=== PATIENT | male | born 1950 | race Caucasian/White ===

== ENCOUNTER 2024-07-26 09:26 | Inpatient (IN) ==
[2024-07-26] MEDS ORDERED: 0.9 % SODIUM CHLORIDE 1,000 ML IV ONE (09:50)
[2024-07-26] MEDS: 0.9 % SODIUM CHLORIDE 500 ML IV ONE ×2 (09:53→12:10)
[2024-07-26] MEDS: 0.9 % SODIUM CHLORIDE 250 ML IV SCH ×3 (09:56→12:22)
[2024-07-26 10:09] LABS: Basophils # (Auto) 0.07 K/mcL (0.00-0.30); Basophils % (Auto) 0.2 % (0.0-2.0); Eosinophils # (Auto) 0 K/mcL (0.00-0.70); Eosinophils % (Auto) 0 % (0.0-7.0); Hematocrit 24.7 % (40.1-51.0); Hemoglobin 7.5 g/dL (13.7-17.5); Lymphocytes # (Auto) 1.65 K/mcL (1.50-4.80); Lymphocytes % (Auto) 4.8 % (15.5-49.0); Mean Cell Volume 94.6 fL (80.0-100.0); Mean Corpuscular HGB Conc 30.4 g/dL (31.0-36.0); Mean Platelet Volume 10.3 fL (8.8-12.5); Monocytes # (Auto) 1.38 K/mcL (0.10-0.90); Neutrophils % (Auto) 90.4 % (38.0-78.0); Platelet Count 299 K/mcL (140-440); RBC 2.61 M/mcL (4.63-6.08); Red Cell Distribution Width 16.5 % (11.5-14.5); WBC 34.6 K/mcL (4.5-11.0)
[2024-07-26 10:24] LABS: INR 1.2 (0.9-1.1); Prothrombin Time 15.9 sec (11.9-14.5)
[2024-07-26 10:29] LABS: ABG Methemoglobin 0.2 % (0.4-1.5); Total Hemoglobin 8.7 gm/Dl (13.5-16.5); VBG Base Excess -11 (-2-3); VBG HCO3 15.7 mmol/L (24.0-28.0); VBG Oxygen Saturation 80.1 % (40.0-70.0); VBG PCO2 40.7 mmHg (41.0-51.0); VBG PH 7.21 U (7.32-7.42); VBG PO2 66.1 mmHg (25.0-40.0)
[2024-07-26] MEDS: METOPROLOL TARTRATE 5 MG/5 ML VIAL IV ONE (11:06)
[2024-07-26 11:11] LABS: ALT/SGPT 13 U/L (<40); AST/SGOT 23 U/L (<40); Albumin 3.4 gm/dL (3.2-5.2); Albumin/Globulin Ratio 1.4 (1.0-2.3); Alkaline Phosphatase 82 U/L (39-117); Bilirubin,Total 0.6 mg/dL (0.1-1.0); Blood Urea Nitrogen 49 mg/dL (8-23); Calcium 9.4 mg/dL (8.6-10.4); Carbon Dioxide 17 mmol/L (22-30); Chloride 91 mmol/L (96-108); Globulin 2.4 gm/dL (2.2-3.7); Glomerular Filtration Rate 26; Glucose 145 mg/dL (70-105); Potassium 4.8 mmol/L (3.3-5.1); Sodium 130 mmol/L (133-145)
[2024-07-26] MEDS: LIDOCAINE 2% URO-JET 10 ML JEL.PF.APP UR ONE (11:35)
[2024-07-26] MEDS: [UNRECOGNIZED DRUG - OTHER] IV ONE (12:09)
[2024-07-26] MEDS: NOREPINEPHRINE 250 ML IV SCH ×2 (12:09→19:20)
[2024-07-26] MEDS: EMPTYBAG IV ONE ×2 (12:09→12:23)
[2024-07-26] MEDS: NOREPINEPHRINE BITARTRATE 16 MG in 0.9 % SODIUM CHLORIDE 234 ML IV SCH (12:09)
[2024-07-26] MEDS: [UNRECOGNIZED DRUG - OTHER] IV ONE (12:23)
[2024-07-26] MEDS: CEFEPIME 1 GM VIAL IV ONE (12:34)
[2024-07-26] MEDS: VANCOMYCIN 1,500 MG in 0.9 % SODIUM CHLORIDE 500 ML IV ONE (12:36)
[2024-07-26] MEDS: VANCOMYCIN 1,250 MG in 0.9 % SODIUM CHLORIDE 500 ML IV ONE (12:43)
[2024-07-26 13:04] LABS: Appearance,Urine CLOUDY (Clear); Bilirubin,Urine Negative (Negative); Color,Urine RED; Glucose,Urine (UA) 50 mg/dL (Negative); Ketones,Urine Negative (Negative); Leukocyte Esterase,Urine Negative /uL (Negative); Nitrate,Urine Negative (Negative); Protein,Urine 100 mg/dL (Negative); Specific Gravity,Urine 1.025 (1.000-1.035); Urine RBC > 182 /hpf (0-1); Urine Squamous Epithelial Cell 0 /hpf (0-4); Urine WBC > 182 /hpf (0-4); Urobilinogen,Urine Negative
[2024-07-26] MEDS ORDERED: VANCOMYCIN PER PHARMACY IV SCH (14:42)
[2024-07-26] MEDS ORDERED: DEXTROSE 50% 50 ML VIAL IV PRN (16:02)
[2024-07-26] MEDS ORDERED: DEXTROSE 31 GM ORAL.SUSP PO PRN (16:02)
[2024-07-26] MEDS ORDERED: BISACODYL 10 MG SUPP.RECT PR PRN (16:02)
[2024-07-26] MEDS ORDERED: ONDANSETRON 4 MG/2 ML VIAL IV PRN (16:02)
[2024-07-26] MEDS: CEFEPIME 2 GM VIAL IV SCH ×2 (17:07→20:58)
[2024-07-26] MEDS: INSULIN LISPRO 1 UNIT/0.01 ML UNIT SQ SCH (17:30)
[2024-07-26] MEDS: LACTATED RINGERS 1,000 ML IV SCH (17:32)
[2024-07-26 18:04] LABS: Hematocrit 27.2 % (40.1-51.0); Hemoglobin 8.7 g/dL (13.7-17.5)
[2024-07-26 19:23] LABS: Estimated Average Glucose(eAG) 97 mg/dL
[2024-07-26] MEDS: 0.9 % SODIUM CHLORIDE 10 ML SYRINGE IV SCH (20:58)
[2024-07-27 06:04] LABS: Basophils # (Auto) 0.01 K/mcL (0.00-0.30); Basophils % (Auto) 0 % (0.0-2.0); Eosinophils # (Auto) 0.01 K/mcL (0.00-0.70); Eosinophils % (Auto) 0 % (0.0-7.0); Hematocrit 22.8 % (40.1-51.0); Hemoglobin 7.4 g/dL (13.7-17.5); Lymphocytes # (Auto) 0.79 K/mcL (1.50-4.80); Lymphocytes % (Auto) 3.6 % (15.5-49.0); Mean Cell Volume 91.2 fL (80.0-100.0); Mean Corpuscular HGB Conc 32.5 g/dL (31.0-36.0); Mean Platelet Volume 10.4 fL (8.8-12.5); Monocytes # (Auto) 1.32 K/mcL (0.10-0.90); Monocytes % (Auto) 6.1 % (1.0-12.0); Neutrophils % (Auto) 89.3 % (38.0-78.0); Platelet Count 149 K/mcL (140-440); Red Cell Distribution Width 15.8 % (11.5-14.5); WBC 21.7 K/mcL (4.5-11.0)
[2024-07-27 06:14] LABS: INR 1.3 (0.9-1.1); Prothrombin Time 16.6 sec (11.9-14.5)
[2024-07-27 06:25] LABS: Vancomycin,Random 7.5 ug/mL
[2024-07-27 06:28] LABS: Blood Urea Nitrogen 39 mg/dL (8-23); Calcium 8.7 mg/dL (8.6-10.4); Carbon Dioxide 20 mmol/L (22-30); Chloride 102 mmol/L (96-108); Glomerular Filtration Rate 59; Glucose 93 mg/dL (70-105); Potassium 4.3 mmol/L (3.3-5.1); Sodium 134 mmol/L (133-145)
[2024-07-27] MEDS: 0.9 % SODIUM CHLORIDE 250 ML IV SCH (08:20)
[2024-07-27] MEDS ORDERED: CEFEPIME 1 GM VIAL IV SCH (09:00)
[2024-07-27] MEDS: VANCOMYCIN 1,750 MG in 0.9 % SODIUM CHLORIDE 500 ML IV ONE (09:49)
[2024-07-27] MEDS ORDERED: PROPOFOL 200 MG/20 ML VIAL IV ONE (10:30)
[2024-07-27] MEDS ORDERED: KETAMINE 50 MG/ML ML ONE (10:31)
[2024-07-27] MEDS ORDERED: DEXAMETHASONE 10 MG/ML VIAL ONE (10:32)
[2024-07-27] MEDS ORDERED: LIDOCAINE 2% PF 5 ML VIAL ONE (10:32)
[2024-07-27] MEDS ORDERED: ONDANSETRON 4 MG/2 ML VIAL ONE (10:32)
[2024-07-27] MEDS ORDERED: MEPERIDINE 25 MG/ML VIAL IV PRN (11:20)
[2024-07-27] MEDS ORDERED: IPRATROPIUM/ALBUTEROL 3 ML AMPUL.NEB NEB PRN (11:20)
[2024-07-27] MEDS ORDERED: fentaNYL 100 MCG/2 ML VIAL IV PRN (11:20)
[2024-07-27] MEDS ORDERED: NALOXONE HCL 0.4 MG/ML VIAL IV PRN (11:20)
[2024-07-27] MEDS ORDERED: ONDANSETRON 4 MG/2 ML VIAL IV PRN (11:20)
[2024-07-27] MEDS ORDERED: diphenhydrAMINE 50 MG/ML VIAL IV PRN (11:20)
[2024-07-27] MEDS ORDERED: LACTATED RINGERS 250 ML IV PRN (11:20)
[2024-07-27] MEDS: ACETAMINOPHEN 1,000 MG/100 ML BAG IV ONE (12:11)
[2024-07-27 12:59] LABS: Hematocrit 30.4 % (40.1-51.0); Hemoglobin 9.8 g/dL (13.7-17.5)
[2024-07-27] MEDS: LACTATED RINGERS 1,000 ML IV SCH (13:49)
[2024-07-27] MEDS: LIDOCAINE 2% URO-JET 10 ML JEL.PF.APP UR ONE (13:50)
[2024-07-27] MEDS ORDERED: BISACODYL 10 MG SUPP.RECT PR PRN (16:53)
[2024-07-27] MEDS: HYDROcodone/APAP 5/325MG TABLET PO PRN (20:57)
[2024-07-27] MEDS: CALCIUM CARBONATE 500 MG TAB.CHEW CHEWED SCH (20:59)
[2024-07-27] MEDS: FLUTICASONE/SALMETEROL 250/50 INHALER #14 INH SCH (20:59)
[2024-07-28 05:52] LABS: Basophils # (Auto) 0.01 K/mcL (0.00-0.30); Basophils % (Auto) 0.1 % (0.0-2.0); Eosinophils # (Auto) 0.01 K/mcL (0.00-0.70); Eosinophils % (Auto) 0.1 % (0.0-7.0); Hematocrit 27.5 % (40.1-51.0); Hemoglobin 8.8 g/dL (13.7-17.5); Lymphocytes # (Auto) 0.58 K/mcL (1.50-4.80); Lymphocytes % (Auto) 3.9 % (15.5-49.0); Mean Platelet Volume 10.7 fL (8.8-12.5); Monocytes # (Auto) 0.82 K/mcL (0.10-0.90); Monocytes % (Auto) 5.5 % (1.0-12.0); Neutrophils % (Auto) 89.5 % (38.0-78.0); Platelet Count 131 K/mcL (140-440); RBC 2.99 M/mcL (4.63-6.08); Red Cell Distribution Width 16.6 % (11.5-14.5); WBC 14.8 K/mcL (4.5-11.0)
[2024-07-28 06:11] LABS: Blood Urea Nitrogen 29 mg/dL (8-23); Calcium 8.5 mg/dL (8.6-10.4); Carbon Dioxide 20 mmol/L (22-30); Chloride 103 mmol/L (96-108); Glomerular Filtration Rate 84; Glucose 126 mg/dL (70-105); Potassium 4.9 mmol/L (3.3-5.1); Sodium 136 mmol/L (133-145)
[2024-07-28 06:17] LABS: INR 1.1 (0.9-1.1); Prothrombin Time 14.7 sec (11.9-14.5)
[2024-07-28] MEDS: ACETAMINOPHEN 325 MG TABLET PO PRN (08:46)
[2024-07-28] MEDS: ATORVASTATIN 40 MG TABLET PO SCH (08:47)
[2024-07-28] MEDS: METOPROLOL SUCCINATE 50 MG TAB.XL.24H PO SCH (08:47)
[2024-07-28] MEDS: TIOTROPIUM BROMIDE INH SCH (11:58)
[2024-07-28] MEDS: METOPROLOL TARTRATE 50 MG TABLET PO SCH (11:58)
[2024-07-28] MEDS: MEROPENEM 1 GM in 0.9 % SODIUM CHLORIDE 50 ML IV SCH (12:58)
[2024-07-28] MEDS ORDERED: CEFEPIME 2 GM VIAL IV SCH (15:00)
[2024-07-28] MEDS: TAMSULOSIN 0.4 MG CAPSULE PO SCH (20:44)
[2024-07-28] MEDS: MELATONIN 3 MG TABLET PO PRN (20:44)
[2024-07-29 06:19] LABS: Basophils # (Auto) 0.01 K/mcL (0.00-0.30); Basophils % (Auto) 0.1 % (0.0-2.0); Eosinophils # (Auto) 0.02 K/mcL (0.00-0.70); Eosinophils % (Auto) 0.1 % (0.0-7.0); Hematocrit 29.2 % (40.1-51.0); Hemoglobin 8.9 g/dL (13.7-17.5); Lymphocytes # (Auto) 1.15 K/mcL (1.50-4.80); Lymphocytes % (Auto) 7.3 % (15.5-49.0); Mean Cell Volume 96.7 fL (80.0-100.0); Mean Corpuscular HGB Conc 30.5 g/dL (31.0-36.0); Mean Platelet Volume 10.8 fL (8.8-12.5); Monocytes # (Auto) 1.06 K/mcL (0.10-0.90); Monocytes % (Auto) 6.7 % (1.0-12.0); Neutrophils % (Auto) 84.3 % (38.0-78.0); Platelet Count 144 K/mcL (140-440); RBC 3.02 M/mcL (4.63-6.08); Red Cell Distribution Width 16.3 % (11.5-14.5); WBC 15.9 K/mcL (4.5-11.0)
[2024-07-29 07:00] LABS: C-Reactive Protein 8.61 mg/dL (0.03-0.80)
[2024-07-29 07:02] LABS: Blood Urea Nitrogen 24 mg/dL (8-23); Calcium 8.8 mg/dL (8.6-10.4); Carbon Dioxide 21 mmol/L (22-30); Chloride 105 mmol/L (96-108); Glomerular Filtration Rate 88; Glucose 101 mg/dL (70-105); Potassium 4.1 mmol/L (3.3-5.1); Sodium 138 mmol/L (133-145)
[2024-07-29] MEDS: POLYETHYLENE GLYCOL 3350 17 GM PACKET PO PRN (14:28)
[2024-07-29] MEDS: IPRATROPIUM/ALBUTEROL 3 ML AMPUL.NEB NEB PRN (15:05)
[2024-07-29] MEDS: SENNOSIDES 1 TABLET PO PRN (20:26)
[2024-07-30 06:12] LABS: Basophils # (Auto) 0.02 K/mcL (0.00-0.30); Basophils % (Auto) 0.2 % (0.0-2.0); Eosinophils # (Auto) 0.09 K/mcL (0.00-0.70); Eosinophils % (Auto) 0.8 % (0.0-7.0); Hematocrit 29.4 % (40.1-51.0); Hemoglobin 9.1 g/dL (13.7-17.5); Lymphocytes % (Auto) 10.1 % (15.5-49.0); Mean Cell Volume 93.3 fL (80.0-100.0); Mean Platelet Volume 10.6 fL (8.8-12.5); Monocytes # (Auto) 1.09 K/mcL (0.10-0.90); Monocytes % (Auto) 9.2 % (1.0-12.0); Neutrophils % (Auto) 75.9 % (38.0-78.0); Platelet Count 150 K/mcL (140-440); RBC 3.15 M/mcL (4.63-6.08); Red Cell Distribution Width 15.6 % (11.5-14.5); WBC 11.8 K/mcL (4.5-11.0)
[2024-07-30 06:34] LABS: C-Reactive Protein 4.92 mg/dL (0.03-0.80)
[2024-07-30 06:41] LABS: Blood Urea Nitrogen 17 mg/dL (8-23); Calcium 8.3 mg/dL (8.6-10.4); Carbon Dioxide 23 mmol/L (22-30); Chloride 103 mmol/L (96-108); Glomerular Filtration Rate 93; Glucose 96 mg/dL (70-105); Potassium 3.6 mmol/L (3.3-5.1); Sodium 136 mmol/L (133-145)
[2024-07-30] MEDS: METOPROLOL TARTRATE 5 MG/5 ML VIAL IV PRN (09:06)
[2024-07-30] MEDS: 0.9 % SODIUM CHLORIDE 500 ML IV ONE (09:06)
[2024-07-30] MEDS ORDERED: DILTIAZEM 25 MG/5 ML VIAL IV PRN (09:54)
[2024-07-30] MEDS ORDERED: fentaNYL 100 MCG/2 ML VIAL IV PRN (10:04)
[2024-07-30] MEDS ORDERED: MIDAZOLAM 5 MG/5 ML VIAL IV PRN (10:04)
[2024-07-30] MEDS: 0.9 % SODIUM CHLORIDE 1,000 ML IV ONE (10:25)
[2024-07-30] MEDS: ADENOSINE 3 MG/ML VIAL IV ONE (10:25)
[2024-07-30] MEDS: ADENOSINE 3 MG/ML VIAL IV PRN (10:27)
[2024-07-30] MEDS: METOPROLOL TARTRATE 5 MG/5 ML VIAL IV SCH (10:40)
[2024-07-30] MEDS: MIDAZOLAM 2 MG/2 ML VIAL ONE (11:39)
[2024-07-30] MEDS: fentaNYL 100 MCG/2 ML VIAL ONE (11:39)
[2024-07-30] MEDS: MAGNESIUM HYDROXIDE 30 ML ORAL.SUSP PO PRN (12:04)
[2024-07-30] MEDS: METOPROLOL TARTRATE 50 MG TABLET PO ONE (13:25)
[2024-07-30] MEDS: METOPROLOL TARTRATE 25 MG TABLET ONE (13:25)
[2024-07-30] MEDS ORDERED: METOPROLOL TARTRATE 50 MG TABLET PO SCH (15:00)
[2024-07-30] MEDS: FUROSEMIDE 40 MG/4 ML VIAL IV ONE ×2 (20:05→20:08)
[2024-07-30] MEDS: POTASSIUM CHLORIDE 20 MEQ TABLET PO ONE (20:08)
[2024-07-30] MEDS: MAGNESIUM SULFATE 2 GM/50 ML BAG IV ONE (21:06)
[2024-07-30] MEDS: ENOXAPARIN 80 MG/0.8 ML SYRINGE SQ SCH (21:12)
[2024-07-30] MEDS: METOPROLOL TARTRATE 50 MG TABLET PO SCH (21:12)
[2024-07-30] MEDS: 0.9 % SODIUM CHLORIDE 10 ML SYRINGE IV SCH (21:13)
[2024-07-30] MEDS: MAGNESIUM SULFATE 24.36 MEQ in DEXTROSE 5% IN WATER 50 ML IV ONE (21:45)
[2024-07-30] MEDS: MAGNESIUM SULFATE 8.12 MEQ/2 ML VIAL ONE (21:46)
[2024-07-31 05:49] LABS: Basophils # (Auto) 0.03 K/mcL (0.00-0.30); Basophils % (Auto) 0.2 % (0.0-2.0); Eosinophils # (Auto) 0.16 K/mcL (0.00-0.70); Eosinophils % (Auto) 1.2 % (0.0-7.0); Hematocrit 31.9 % (40.1-51.0); Hemoglobin 9.5 g/dL (13.7-17.5); Lymphocytes # (Auto) 2.08 K/mcL (1.50-4.80); Lymphocytes % (Auto) 15.6 % (15.5-49.0); Mean Cell Volume 95.8 fL (80.0-100.0); Mean Corpuscular HGB Conc 29.8 g/dL (31.0-36.0); Mean Platelet Volume 10.8 fL (8.8-12.5); Monocytes # (Auto) 1.15 K/mcL (0.10-0.90); Monocytes % (Auto) 8.6 % (1.0-12.0); Neutrophils % (Auto) 69.2 % (38.0-78.0); Platelet Count 163 K/mcL (140-440); RBC 3.33 M/mcL (4.63-6.08); Red Cell Distribution Width 15.6 % (11.5-14.5); WBC 13.4 K/mcL (4.5-11.0)
[2024-07-31 06:04] LABS: Blood Urea Nitrogen 15 mg/dL (8-23); C-Reactive Protein 4.77 mg/dL (0.03-0.80); Calcium 8.5 mg/dL (8.6-10.4); Carbon Dioxide 26 mmol/L (22-30); Chloride 102 mmol/L (96-108); Glomerular Filtration Rate 93; Glucose 100 mg/dL (70-105); Potassium 3.9 mmol/L (3.3-5.1); Sodium 138 mmol/L (133-145)
[2024-07-31] MEDS: FUROSEMIDE 40 MG/4 ML VIAL IV ONE (07:28)
[2024-07-31] MEDS ORDERED: SODIUM CHLORIDE IRRIG SOLUTION 250 ML BOTTLE IRR ONE (08:51)
[2024-07-31] MEDS ORDERED: LIDOCAINE 1% 10 ML VIAL SQ ONE (08:51)
[2024-07-31] MEDS: FUROSEMIDE 40 MG/4 ML VIAL IV SCH (16:08)
[2024-07-31] MEDS: MAGNESIUM SULFATE 2 GM/50 ML BAG IV ONE (18:22)
[2024-07-31] MEDS: 0.9 % SODIUM CHLORIDE 10 ML SYRINGE IV PRN (19:25)
[2024-08-01 06:46] LABS: Basophils # (Auto) 0.02 K/mcL (0.00-0.30); Basophils % (Auto) 0.2 % (0.0-2.0); Eosinophils # (Auto) 0.13 K/mcL (0.00-0.70); Eosinophils % (Auto) 1.1 % (0.0-7.0); Hematocrit 30.5 % (40.1-51.0); Hemoglobin 9.4 g/dL (13.7-17.5); Lymphocytes # (Auto) 1.59 K/mcL (1.50-4.80); Mean Cell Volume 93.8 fL (80.0-100.0); Mean Corpuscular HGB Conc 30.8 g/dL (31.0-36.0); Mean Platelet Volume 11.1 fL (8.8-12.5); Monocytes % (Auto) 7.1 % (1.0-12.0); Neutrophils % (Auto) 72.1 % (38.0-78.0); Platelet Count 174 K/mcL (140-440); RBC 3.25 M/mcL (4.63-6.08); Red Cell Distribution Width 15.5 % (11.5-14.5); WBC 11.3 K/mcL (4.5-11.0)
[2024-08-01 07:05] LABS: ALT/SGPT 17 U/L (<40); AST/SGOT 13 U/L (<40); Albumin 2.8 gm/dL (3.2-5.2); Albumin/Globulin Ratio 1.2 (1.0-2.3); Alkaline Phosphatase 57 U/L (39-117); Bilirubin,Direct 0.2 mg/dL (<0.3); Bilirubin,Total 0.4 mg/dL (0.1-1.0); Blood Urea Nitrogen 15 mg/dL (8-23); Calcium 8.2 mg/dL (8.6-10.4); Carbon Dioxide 31 mmol/L (22-30); Chloride 98 mmol/L (96-108); Globulin 2.3 gm/dL (2.2-3.7); Glomerular Filtration Rate 93; Glucose 95 mg/dL (70-105); Lactate Dehydrogenase 180 U/L (135-225); Phosphorous 3.6 mg/dL (2.5-4.5); Potassium 3.4 mmol/L (3.3-5.1); Sodium 140 mmol/L (133-145); Triglycerides 104 mg/dL (<150); Uric Acid 6.2 mg/dL (2.5-8.0)
[2024-08-01] MEDS: POTASSIUM CHLORIDE 20 MEQ TABLET PO ONE (09:00)
[2024-08-01] MEDS: FUROSEMIDE 40 MG/4 ML VIAL IV SCH (21:07)
[2024-08-01] MEDS: METOPROLOL TARTRATE 50 MG TABLET PO SCH (21:09)
[2024-08-02 05:56] LABS: Basophils # (Auto) 0.02 K/mcL (0.00-0.30); Basophils % (Auto) 0.2 % (0.0-2.0); Eosinophils # (Auto) 0.14 K/mcL (0.00-0.70); Eosinophils % (Auto) 1.4 % (0.0-7.0); Hematocrit 32.1 % (40.1-51.0); Lymphocytes # (Auto) 1.56 K/mcL (1.50-4.80); Lymphocytes % (Auto) 15.8 % (15.5-49.0); Mean Cell Volume 91.7 fL (80.0-100.0); Mean Corpuscular HGB Conc 31.2 g/dL (31.0-36.0); Mean Platelet Volume 10.3 fL (8.8-12.5); Monocytes # (Auto) 0.75 K/mcL (0.10-0.90); Monocytes % (Auto) 7.6 % (1.0-12.0); Neutrophils % (Auto) 71.5 % (38.0-78.0); Platelet Count 167 K/mcL (140-440); Red Cell Distribution Width 15.6 % (11.5-14.5); WBC 9.9 K/mcL (4.5-11.0)
[2024-08-02 06:19] LABS: ALT/SGPT 18 U/L (<40); AST/SGOT 14 U/L (<40); Albumin 3.1 gm/dL (3.2-5.2); Albumin/Globulin Ratio 1.3 (1.0-2.3); Alkaline Phosphatase 62 U/L (39-117); Bilirubin,Direct 0.3 mg/dL (<0.3); Bilirubin,Total 0.5 mg/dL (0.1-1.0); Blood Urea Nitrogen 18 mg/dL (8-23); Calcium 8.3 mg/dL (8.6-10.4); Carbon Dioxide 32 mmol/L (22-30); Chloride 96 mmol/L (96-108); Globulin 2.4 gm/dL (2.2-3.7); Glomerular Filtration Rate 93; Glucose 93 mg/dL (70-105); Lactate Dehydrogenase 176 U/L (135-225); Phosphorous 3.2 mg/dL (2.5-4.5); Potassium 3.5 mmol/L (3.3-5.1); Sodium 137 mmol/L (133-145); Triglycerides 129 mg/dL (<150)
[2024-08-02] MEDS: ERTAPENEM 1 GM VIAL IM SCH (10:49)
[2024-08-02] MEDS: METOPROLOL SUCCINATE 50 MG TAB.XL.24H PO SCH (11:24)
[2024-08-02] MEDS: ERTAPENEM 1 GM in 0.9 % SODIUM CHLORIDE 50 ML IV SCH (11:24)
[2024-08-02] MEDS ORDERED: APIXABAN 5 MG TABLET PO SCH (21:00)
== END 2024-08-02 15:07 | DRG 853 ==
LOC: ED 09:26 → ICU 16:00
PROVIDERS: ADMIT Student in an Organized Health Care Education/Training Program; ATTEND Student in an Organized Health Care Education/Training Program